=== PATIENT | male | born 1940 | race Caucasian/White ===

== ENCOUNTER 2016-12-02 18:04 | Inpatient (IN) ==
[2016-12-02] MEDS ORDERED: DILTIAZEM 50 MG/10 ML VIAL IV STA (18:28)
[2016-12-02] MEDS ORDERED: DILTIAZEM 50 MG/10 ML VIAL IV ONE (18:41)
[2016-12-02] MEDS ORDERED: DILTIAZEM 100 MG VIAL.ADD IV ONE (18:41)
[2016-12-02 18:46] LABS: ABG Base Excess -0.5 MMOL/L (-2.5-2.5); ABG HCO3 24.1 MMOL/L (20-26); ABG Oxygen Saturation 99.5 % (95-100); ABG PCO2 41.5 MM HG (35-48); ABG PH 7.382 (7.35-7.45); ABG TCO2 21.6 MMOL/L (23-27); Allen Test Positive; Pt O2 Delivery Device Ventilator
[2016-12-02 18:51] LABS: Basophils % 0.1 % (0.0-0.8); Eosinophils # 0.1 10*3/uL (0.0-0.87); Eosinophils % 0.4 % (0.00-10.9); Hematocrit 41.5 VOL% (42.0-52.0); Hemoglobin 13.5 GM/DL (14.0-18.0); Immature Granulocytes % 0.7 %; Lymphocytes # 1.3 10*3/uL (1.4-4.0); Lymphocytes % 8.2 % (21.2-54.2); Mean Corpuscular HGB Conc 32.5 GM/DL (32-36); Mean Corpuscular Hemoglobin 28 PG (27-34); Mean Corpuscular Volume 84.7 FL (87-102); Mean Platelet Volume 10.5 FL (9.6-12.0); Monocytes # 1.2 10*3/uL (0.11-0.8); Neutrophils # 12.6 10*3/uL (1.4-7.4); Neutrophils % 82.6 % (38.7-73.9); Platelet Count 103 T/CUMM (130-400); Red Cell Distribution Width 17.6 % (9.3-17.3); White Blood Count 15.3 T/CUMM (4-12)
[2016-12-02] MEDS: DILTIAZEM INJ 100 MG in SODIUM CHLORIDE 0.9% 100 ML IV SCH ×2 (18:52→21:00)
[2016-12-02 19:05] LABS: Calcium 8.6 MG/DL (8.5-10.1); Osmolality,Calculated 279.5 MOS/KG (273-304); Total Protein 6.5 G/DL (6.4-8.3)
[2016-12-02] MEDS ORDERED: ONDANSETRON 4 MG/2 ML VIAL IV PRN (19:25)
[2016-12-02] MEDS ORDERED: MORPHINE 2 MG/1 ML SYRINGE IV PRN (19:25)
[2016-12-02] MEDS: MIDAZOLAM 100 MG in SODIUM CHLORIDE 0.9% 80 ML IV SCH (20:05)
[2016-12-02] MEDS ORDERED: DEXTROSE 50% 25 GM/50 ML SYRINGE IV PRN (20:22)
[2016-12-02] MEDS ORDERED: GLUCAGON 1 MG VIAL IM PRN (20:22)
[2016-12-02] MEDS: DEXTROSE 5% NACL 0.45% 1,000 ML IV SCH (20:34)
[2016-12-02 20:48] LABS: ABG HCO3 24.5 MMOL/L (20-26); ABG Oxygen Saturation 99.5 % (95-100); ABG PCO2 36.1 MM HG (35-48); Allen Test Positive; Pt O2 Delivery Device Ventilator
[2016-12-02] MEDS: ENOXAPARIN 80 MG/0.8 ML SYRINGE SUBCUT SCH (22:19)
[2016-12-03] MEDS: DILTIAZEM INJ 100 MG in SODIUM CHLORIDE 0.9% 100 ML IV SCH ×2 (01:25→11:13)
[2016-12-03] MEDS: INSULIN LISPRO 100 UNIT/ML SUBCUT SCH ×4 (01:28→17:06)
[2016-12-03 02:59] LABS: ABG Base Excess 2.2 MMOL/L (-2.5-2.5); ABG HCO3 24.6 MMOL/L (20-26); ABG Oxygen Saturation 99.2 % (95-100); ABG PCO2 31.4 MM HG (35-48); ABG PH 7.511 (7.35-7.45); ABG PO2 212.3 MM HG (80-95); ABG TCO2 25.5 MMOL/L (23-27); Allen Test Positive; Pt O2 Delivery Device Ventilator
[2016-12-03 06:27] LABS: Albumin 2.4 G/DL (3.4-5.0); Calcium 8.1 MG/DL (8.5-10.1); Osmolality,Calculated 280.5 MOS/KG (273-304); Potassium 4.1 MMOL/L (3.5-5.1); Thyroid Stimulating Hormone 0.101 uIU/ml (0.358-3.74); Total Protein 5.5 G/DL (6.4-8.3)
[2016-12-03 06:58] LABS: Basophils % 0.2 % (0.0-0.8); Eosinophils % 0.3 % (0.00-10.9); Hematocrit 36.6 VOL% (42.0-52.0); Hemoglobin 12.1 GM/DL (14.0-18.0); Immature Granulocytes % 0.7 %; Lymphocytes # 1.1 10*3/uL (1.4-4.0); Lymphocytes % 7.5 % (21.2-54.2); Mean Corpuscular HGB Conc 33.1 GM/DL (32-36); Mean Corpuscular Hemoglobin 28 PG (27-34); Mean Corpuscular Volume 83.4 FL (87-102); Mean Platelet Volume 10.1 FL (9.6-12.0); Monocytes # 1.2 10*3/uL (0.11-0.8); NRBC # 0.02 10*3/uL; Neutrophils # 12.4 10*3/uL (1.4-7.4); Neutrophils % 83.3 % (38.7-73.9); Platelet Count 146 T/CUMM (130-400); Red Blood Count 4.39 MC/CUMM (3.8-5.5); Red Cell Distribution Width 17.5 % (9.3-17.3); White Blood Count 14.9 T/CUMM (4-12)
[2016-12-03 07:46] LABS: Apearance,Urine CLEAR (Clear); Bacteria,Urine Occasional /HPF (Few); Bilirubin,Urine Negative (Negative); Blood, Urine Small mg/dL (Negative); Glucose,Urine (UA) Negative (Negative); Ketones,Urine Negative (Negative); Mucus,Urine Occasional /LPF (Occasional); Nitrite,Urine Negative (Negative); Protein,Urine Negative; RBC,Urine 4 /HPF (0-4); Squamous Epithelial Cell,Urine Occasional /HPF (0-10); Urine Color Yellow (Yellow); Urine Specific Gravity 1.013 (1.001-1.035); WBC,Urine 25 /HPF (0-6)
[2016-12-03] MEDS: MIDAZOLAM 100 MG in SODIUM CHLORIDE 0.9% 80 ML IV SCH (08:54)
[2016-12-03] MEDS: PROPOFOL 1,000 MG/100 ML BOTTLE IV SCH (08:54)
[2016-12-03] MEDS: CLINDAMYCIN INJ 300 MG in PREMIX 1 EACH IV SCH ×3 (11:13→21:27)
[2016-12-03] MEDS: METOPROLOL TARTRATE 50 MG TABLET PO SCH ×2 (11:25→21:27)
[2016-12-03] MEDS: ENOXAPARIN 80 MG/0.8 ML SYRINGE SUBCUT SCH ×2 (13:13→21:27)
[2016-12-03] MEDS: ASPIRIN EC 81 MG TABLET PO SCH (13:13)
[2016-12-03] MEDS: DEXTROSE 5% NACL 0.45% 1,000 ML IV SCH (13:17)
[2016-12-03] MEDS ORDERED: DEXTROSE 50% 25 GM/50 ML VIAL IV PRN (15:02)
[2016-12-03 17:06] LABS: Risk Ratio 3.15; VLDL CHOLESTEROL 20.8 MG/DL
[2016-12-03] MEDS: ATORVASTATIN 80 MG TABLET PO SCH (21:27)
[2016-12-04] MEDS: INSULIN LISPRO 100 UNIT/ML SUBCUT SCH ×5 (00:23→23:58)
[2016-12-04 03:14] LABS: ABG Base Excess 2.2 MMOL/L (-2.5-2.5); ABG HCO3 23.4 MMOL/L (20-26); ABG Oxygen Saturation 99.1 % (95-100); ABG PCO2 26.6 MM HG (35-48); ABG PH 7.562 (7.35-7.45); ABG PO2 191.1 MM HG (80-95); ABG TCO2 24.2 MMOL/L (23-27); Pt O2 Delivery Device Ventilator
[2016-12-04] MEDS: CLINDAMYCIN INJ 300 MG in PREMIX 1 EACH IV SCH ×4 (04:24→21:27)
[2016-12-04] MEDS: PROPOFOL 1,000 MG/100 ML BOTTLE IV SCH (04:25)
[2016-12-04] MEDS: DEXTROSE 5% NACL 0.45% 1,000 ML IV SCH ×2 (04:25→21:04)
[2016-12-04] MEDS: DILTIAZEM INJ 100 MG in SODIUM CHLORIDE 0.9% 100 ML IV SCH ×2 (04:26→07:00)
[2016-12-04 06:42] LABS: Basophils % 0.2 % (0.0-0.8); Eosinophils % 0.2 % (0.00-10.9); Hematocrit 33.7 VOL% (42.0-52.0); Hemoglobin 11.3 GM/DL (14.0-18.0); Immature Granulocytes % 0.8 %; Immature Granulocytes Absolute 0.12 #; Mean Corpuscular HGB Conc 33.5 GM/DL (32-36); Mean Corpuscular Hemoglobin 28 PG (27-34); Mean Corpuscular Volume 83.2 FL (87-102); Mean Platelet Volume 10.6 FL (9.6-12.0); Monocytes # 1.1 10*3/uL (0.11-0.8); Monocytes % 7.9 % (1.7-12.7); Neutrophils # 12.1 10*3/uL (1.4-7.4); Neutrophils % 83.9 % (38.7-73.9); Platelet Count 173 T/CUMM (130-400); Red Blood Count 4.05 MC/CUMM (3.8-5.5); Red Cell Distribution Width 17.4 % (9.3-17.3); White Blood Count 14.4 T/CUMM (4-12)
[2016-12-04 07:12] LABS: Calcium 8.2 MG/DL (8.5-10.1); Magnesium 1.6 MG/DL (1.8-2.4); Osmolality,Calculated 283.4 MOS/KG (273-304); Potassium 3.8 MMOL/L (3.5-5.1)
[2016-12-04 07:14] LABS: Phosphorous 2.1 MG/DL (2.5-4.9); Prealbumin 7.6 MG/DL (20-40)
[2016-12-04 07:17] LABS: Albumin 2.1 G/DL (3.4-5.0); Bilirubin,Total 2.1 MG/DL (0.2-1.0); Calcium 8.1 MG/DL (8.5-10.1); Osmolality,Calculated 281.5 MOS/KG (273-304); Potassium 3.8 MMOL/L (3.5-5.1); Total Protein 5.1 G/DL (6.4-8.3)
[2016-12-04] MEDS: PANTOPRAZOLE 40 MG VIAL IV SCH (08:51)
[2016-12-04] MEDS: ASPIRIN EC 81 MG TABLET PO SCH (08:51)
[2016-12-04] MEDS: METOPROLOL TARTRATE 50 MG TABLET PO SCH (08:51)
[2016-12-04] MEDS: ENOXAPARIN 80 MG/0.8 ML SYRINGE SUBCUT SCH (08:51)
[2016-12-04] MEDS ORDERED: MAGNESIUM SULF RIDER 50 ML IV ONE (10:38)
[2016-12-04] MEDS ORDERED: MAGNESIUM SULF RIDER 2 GM in PREMIX 1 EACH IV ONE (12:00)
[2016-12-04] MEDS: APIXABAN 5 MG TABLET PO SCH ×2 (15:51→23:27)
[2016-12-04] MEDS ORDERED: ENOXAPARIN 40 MG/0.4 ML SYRINGE SUBCUT SCH (20:00)
[2016-12-04] MEDS: METOPROLOL TARTRATE 100 MG TABLET PO SCH (20:14)
[2016-12-04] MEDS: ATORVASTATIN 80 MG TABLET PO SCH (20:14)
[2016-12-05] MEDS: DILTIAZEM INJ 100 MG in SODIUM CHLORIDE 0.9% 100 ML IV SCH ×2 (01:54)
[2016-12-05 02:34] LABS: ABG Base Excess -0.4 MMOL/L (-2.5-2.5); ABG HCO3 24.1 MMOL/L (20-26); ABG Oxygen Saturation 99.4 % (95-100); ABG PCO2 30.4 MM HG (35-48); ABG PH 7.476 (7.35-7.45); ABG TCO2 20.1 MMOL/L (23-27); Pt O2 Delivery Device Ventilator
[2016-12-05] MEDS: CLINDAMYCIN INJ 300 MG in PREMIX 1 EACH IV SCH ×4 (04:14→22:30)
[2016-12-05 05:15] LABS: Basophils % 0.2 % (0.0-0.8); Eosinophils % 0.2 % (0.00-10.9); Hematocrit 31.7 VOL% (42.0-52.0); Hemoglobin 10.5 GM/DL (14.0-18.0); Immature Granulocytes % 1.1 %; Immature Granulocytes Absolute 0.14 #; Lymphocytes # 0.7 10*3/uL (1.4-4.0); Lymphocytes % 5.7 % (21.2-54.2); Mean Corpuscular HGB Conc 33.1 GM/DL (32-36); Mean Corpuscular Hemoglobin 28 PG (27-34); Mean Platelet Volume 10.9 FL (9.6-12.0); Monocytes # 0.9 10*3/uL (0.11-0.8); Neutrophils # 10.8 10*3/uL (1.4-7.4); Neutrophils % 85.8 % (38.7-73.9); Platelet Count 175 T/CUMM (130-400); Red Blood Count 3.82 MC/CUMM (3.8-5.5); Red Cell Distribution Width 17.5 % (9.3-17.3); White Blood Count 12.6 T/CUMM (4-12)
[2016-12-05 05:46] LABS: Calcium 7.9 MG/DL (8.5-10.1); Magnesium 2.2 MG/DL (1.8-2.4); Osmolality,Calculated 281.8 MOS/KG (273-304); Potassium 3.9 MMOL/L (3.5-5.1)
[2016-12-05] MEDS: INSULIN LISPRO 100 UNIT/ML SUBCUT SCH ×3 (06:20→17:42)
[2016-12-05] MEDS: METOPROLOL TARTRATE 100 MG TABLET PO SCH ×2 (08:11→22:06)
[2016-12-05] MEDS: ASPIRIN EC 81 MG TABLET PO SCH (08:11)
[2016-12-05] MEDS: APIXABAN 5 MG TABLET PO SCH ×2 (08:11→22:05)
[2016-12-05] MEDS: PANTOPRAZOLE 40 MG VIAL IV SCH (08:11)
[2016-12-05] MEDS ORDERED: ENOXAPARIN 30 MG/0.3 ML SYRINGE SUBCUT SCH (09:00)
[2016-12-05] MEDS: DEXAMETHASONE 4 MG/1 ML VIAL IV SCH ×2 (09:30→16:14)
[2016-12-05] MEDS ORDERED: DEXTROSE 50% 25 GM/50 ML VIAL IV PRN (13:00)
[2016-12-05] MEDS: DEXTROSE 5% NACL 0.45% 1,000 ML IV SCH (16:10)
[2016-12-05] MEDS: ATORVASTATIN 80 MG TABLET PO SCH (22:06)
[2016-12-06] MEDS: PROPOFOL 1,000 MG/100 ML BOTTLE IV SCH (00:31)
[2016-12-06] MEDS: DILTIAZEM INJ 100 MG in SODIUM CHLORIDE 0.9% 100 ML IV SCH ×2 (00:31→21:13)
[2016-12-06] MEDS: INSULIN LISPRO 100 UNIT/ML SUBCUT SCH ×4 (00:44→17:35)
[2016-12-06] MEDS: DEXAMETHASONE 4 MG/1 ML VIAL IV SCH ×3 (00:45→16:26)
[2016-12-06 03:22] LABS: ABG Base Excess 0.3 MMOL/L (-2.5-2.5); ABG HCO3 24.7 MMOL/L (20-26); ABG Oxygen Saturation 99.9 % (95-100); ABG PCO2 30.3 MM HG (35-48); ABG PH 7.487 (7.35-7.45); ABG TCO2 20.6 MMOL/L (23-27); Allen Test Positive; Pt O2 Delivery Device Ventilator
[2016-12-06] MEDS: CLINDAMYCIN INJ 300 MG in PREMIX 1 EACH IV SCH ×4 (04:48→23:30)
[2016-12-06 05:01] LABS: Basophils % 0.1 % (0.0-0.8); Hematocrit 30.5 VOL% (42.0-52.0); Hemoglobin 10.1 GM/DL (14.0-18.0); Immature Granulocytes % 0.7 %; Immature Granulocytes Absolute 0.11 #; Lymphocytes # 0.3 10*3/uL (1.4-4.0); Lymphocytes % 1.9 % (21.2-54.2); Mean Corpuscular HGB Conc 33.1 GM/DL (32-36); Mean Corpuscular Hemoglobin 27 PG (27-34); Mean Corpuscular Volume 82.2 FL (87-102); Mean Platelet Volume 10.5 FL (9.6-12.0); Monocytes # 0.5 10*3/uL (0.11-0.8); Monocytes % 3.1 % (1.7-12.7); Neutrophils % 94.2 % (38.7-73.9); Platelet Count 197 T/CUMM (130-400); Red Blood Count 3.71 MC/CUMM (3.8-5.5); Red Cell Distribution Width 17.4 % (9.3-17.3); White Blood Count 14.9 T/CUMM (4-12)
[2016-12-06 05:22] LABS: INR 1.2; PT Patient Result 12.3 SECS; Partial Thromboplastin Time 36.2 SECS (0-40)
[2016-12-06 05:23] LABS: Band Neutrophils 1 % (0-10); Burr Cells Slight; Giant Platelets Few; Hypochromasia Slight; Lymphocytes 2 % (20-55); Platelet Estimate Adequate; Segmented Neutrophils 95 % (50-85); Total Cells Counted 100
[2016-12-06] MEDS: DEXTROSE 5% NACL 0.45% 1,000 ML IV SCH ×2 (07:50→09:00)
[2016-12-06] MEDS: METOPROLOL TARTRATE 100 MG TABLET PO SCH ×2 (08:08→22:11)
[2016-12-06] MEDS: ASPIRIN EC 81 MG TABLET PO SCH (08:08)
[2016-12-06] MEDS: APIXABAN 5 MG TABLET PO SCH ×2 (08:08→22:10)
[2016-12-06] MEDS: PANTOPRAZOLE 40 MG VIAL IV SCH (08:09)
[2016-12-06] MEDS ORDERED: ALBUTEROL/IPRATROPIUM 3 ML NEB RESP TX PRN (10:44)
[2016-12-06] MEDS: ATORVASTATIN 80 MG TABLET PO SCH (22:10)
[2016-12-07] MEDS: INSULIN LISPRO 100 UNIT/ML SUBCUT SCH ×4 (01:10→18:20)
[2016-12-07] MEDS: DEXAMETHASONE 4 MG/1 ML VIAL IV SCH ×3 (01:11→16:49)
[2016-12-07 03:22] LABS: ABG HCO3 26.1 MMOL/L (20-26); ABG Oxygen Saturation 94.8 % (95-100); ABG PCO2 34.3 MM HG (35-48); ABG PH 7.475 (7.35-7.45); ABG PO2 73.8 MM HG (80-95); ABG TCO2 22.8 MMOL/L (23-27)
[2016-12-07] MEDS: CLINDAMYCIN INJ 300 MG in PREMIX 1 EACH IV SCH ×4 (04:46→22:17)
[2016-12-07] MEDS: DEXTROSE 5% NACL 0.45% 1,000 ML IV SCH (08:21)
[2016-12-07] MEDS: PANTOPRAZOLE 40 MG VIAL IV SCH (09:15)
[2016-12-07] MEDS: ASPIRIN EC 81 MG TABLET PO SCH (09:16)
[2016-12-07] MEDS: APIXABAN 5 MG TABLET PO SCH ×2 (09:16→21:04)
[2016-12-07] MEDS: METOPROLOL TARTRATE 100 MG TABLET PO SCH ×2 (09:16→21:04)
[2016-12-07] MEDS: DILTIAZEM INJ 100 MG in SODIUM CHLORIDE 0.9% 100 ML IV SCH (20:32)
[2016-12-07] MEDS: ATORVASTATIN 80 MG TABLET PO SCH (21:04)
[2016-12-08] MEDS: DEXAMETHASONE 4 MG/1 ML VIAL IV SCH ×3 (00:01→16:46)
[2016-12-08] MEDS: DEXTROSE 5% NACL 0.45% 1,000 ML IV SCH ×2 (00:02→19:48)
[2016-12-08] MEDS: INSULIN LISPRO 100 UNIT/ML SUBCUT SCH ×4 (00:02→18:58)
[2016-12-08] MEDS: CLINDAMYCIN INJ 300 MG in PREMIX 1 EACH IV SCH ×4 (03:58→21:48)
[2016-12-08] MEDS: METOPROLOL TARTRATE 100 MG TABLET PO SCH ×2 (10:18→20:30)
[2016-12-08] MEDS: ASPIRIN EC 81 MG TABLET PO SCH (10:18)
[2016-12-08] MEDS: PANTOPRAZOLE 40 MG VIAL IV SCH (10:22)
[2016-12-08] MEDS: APIXABAN 5 MG TABLET PO SCH ×2 (10:31→20:30)
[2016-12-08] MEDS: DILTIAZEM INJ 100 MG in SODIUM CHLORIDE 0.9% 100 ML IV SCH (19:38)
[2016-12-08] MEDS: ATORVASTATIN 80 MG TABLET PO SCH (20:30)
[2016-12-09] MEDS: INSULIN LISPRO 100 UNIT/ML SUBCUT SCH ×3 (00:50→13:00)
[2016-12-09] MEDS: DEXAMETHASONE 4 MG/1 ML VIAL IV SCH ×2 (00:51→10:20)
[2016-12-09] MEDS: CLINDAMYCIN INJ 300 MG in PREMIX 1 EACH IV SCH ×2 (03:50→10:23)
[2016-12-09] MEDS: ASPIRIN EC 81 MG TABLET PO SCH (10:17)
[2016-12-09] MEDS: APIXABAN 5 MG TABLET PO SCH (10:17)
[2016-12-09] MEDS: PANTOPRAZOLE 40 MG VIAL IV SCH (10:18)
[2016-12-09] MEDS: METOPROLOL TARTRATE 100 MG TABLET PO SCH (10:18)
[2016-12-09] MEDS ORDERED: LORazepam 2 MG/1 ML VIAL IV PRN (15:04)
[2016-12-09] MEDS: DEXTROSE 5% NACL 0.45% 1,000 ML IV SCH (22:48)
[2016-12-10] MEDS ORDERED: ATROPINE 1 % OPH SOLN 5 ML BOTTLE BOTH EYES PRN (18:33)
[2016-12-11 07:24] VITALS: BP 120/73
== END 2016-12-11 09:56 | disposition hospice, inpatient (51) | DRG 987 ==
LOC: EDUNIT# → EDBD → N.ED 18:04 → SUATTDRO 18:50 → N.EDINP 18:50 → SUATTDRO 19:25 → N.CC 19:32 → N.3E 12-07 13:58
PROVIDERS: ADMIT Hospitalist; ATTEND Family Medicine

== ENCOUNTER 2016-12-11 09:57 | Inpatient (IN) | END 2016-12-11 16:10 | disposition E | DRG 951 | LOC: N.3E 09:57 | PROVIDERS: ADMIT Family Medicine; ATTEND Family Medicine ==